=== PATIENT | female | born 2000 | race Caucasian/White ===

== ENCOUNTER 2022-10-17 14:18 | Emergency (ER) | payer BC, SELFPAY ==
[2022-10-17 14:25] VITALS: BP 151/85; PULSE 89; RESP 20; TEMP 37.1; O2SAT 98; BMI 24.3
--- NOTE | 2022-10-17 14:38 | EXP.UTC ---
Discharge Plan Disposition Patient Disposition: Home, Self-Care Condition: Good Prescriptions Prescriptions: New prednisone 10 mg tablets,dose pack See Rx Instructions .ROUTE .COMPLEX Qty: 21 0RF Rx Instructions: Take as directed on package instructions Referrals Follow up/Referrals: Sandi Snowden APRN [Primary Care Provider] - See instructions Activity Restrictions/Add. Instructions Additional Instructions/Restrictions: Oatmeal baths will help to dry the rash and help with itching Over the counter hydrocortisone cream may help Calamine lotion may help with rash and itching Start oral Prednisone tomorrow 10/18/22 Follow up with your Family Doctor if no improvment or any worsening of symptoms Clinical Impressions Clinical Impression: Poison yulia dermatitis Instructions Patient Instructions: Summertime Rashes: Poison [place], [place], and [place], Poison [place], Poison [place], Poison [place], Prednisone Discharge ED Provider: Maritza Escobedo [facility] HPI General Stated complaint: Rash all over body, itchy throat Mode of Arrival: Ambulatory Source of Information: Patient Limitations: No Limitations Time Seen by Provider: 10/17/22 14:38 Description of Symptoms (Recalled from Triage Doc. by RN): PATIENT C/O ITCHY RASH TO ARMS AND LEGS. SHE WAS SEEN IN [facility] LAST MONDAY AND GIVEN MEDICATION AND A CREAM, BUT STATES THE RASH HAS GOTTEN WORSE HEENT Symptoms (Recalled from RN notes): No Resp Symptoms (Recalled from RN notes): No Skin Symptoms (Recalled from RN notes): Yes MS Symptoms (Recalled from RN notes): No Functional Status (Recalled from RN notes): WNL History of Present Illness Provider Complaint: Patient states that she has had rash all over her arms legs and abdomen since last weekend after she was in the [place] States that she seen someone last week and they give her some ointment and oral medication States that she still has some of the itching medication but is out of everything else States that the rash has continued to breakout over the last week and getting worse so she came in to get it checked States that today she has been having sore scratchy throat so she came in Related Data Previous Rx's Medication Instructions Recorded prednisone 10 mg tablets in a dose See Rx Instructions PO .COMPLEX 10/17/22 pack #21 tabs Allergies Allergy/AdvReac Type Severity Reaction Status Date / Time Penicillins Allergy Verified 10/17/22 14:39 Worker's Comp Is this a Worker's Comp case?: No [facility] Disclaimer: The information contained in this section may have been updated after the patient was seen, as this information can be updated by other users. Social History Smoking Status: Unknown if ever smoked alcohol intake: never current occupational status: employed Travel in the last 8 weeks: None ROS Obtained: Yes All systems reviewed & no additional complaints except as documented and Yes Systems reviewed as appropriate & no additional complaints except as documented Constitutional Constitutional: Reports system reviewed and no additional complaints, except as documented and Reports as per HPI ENT Ears, Nose, Mouth, and Throat: Reports system reviewed and no additional complaints, except as documented, Reports as per HPI and Reports sore throat Cardiovascular Cardiovascular: Reports system reviewed and no additional complaints, except as documented and Reports as per HPI Respiratory Respiratory: Reports system reviewed and no additional complaints, except as documented and Reports as per HPI Gastrointestinal Gastrointestingal: Reports system reviewed and no additional complaints, except as documented and as per HPI Integumentary/Breasts Skin/Breast: Reports system reviewed and no additional complaints, except as documented, Reports as per HPI, Reports pruritus and Reports rash Physical Exam General General appearance: alert and in no apparent distress ENT ENT exam: Present mucous membranes moist
[2022-10-17 14:56] VITALS: BP 151/85; PULSE 89; RESP 20; TEMP 37.1; O2SAT 98
[2022-10-17 15:00] LABS: UTC Strep Screen (Rapid) Negative (Negative)
[2022-10-17 15:00] LABS: UTC Pregnancy Test, Urine Negative (Negative)
== END 2022-10-17 15:04 | disposition home or self-care (01) ==
PROVIDERS: Emergency Provider Nurse Practitioner; PCP Nurse Practitioner Family
DX: L23.7 Allergic contact dermatitis due to plants, except food (principal); R07.0 Pain in throat
CPT/HCPCS: 81025; 87880; 96372; 99204; 99212; G0463